=== PATIENT | female | born 1960 | race Caucasian/White ===

== ENCOUNTER → 2022-02-22 | Outpatient (CLI) | payer OTHER, SELFPAY ==
[2022-02-22 07:51] VITALS: BP 104/77; PULSE 68; RESP 18; TEMP 36.9; O2SAT 97; BMI 20.8
--- NOTE | 2022-02-22 13:02 | CT_ITS ---
INDICATION: ELEVATED LIPOPROTEIN Limited Chest OVER READ ONLY EXAMINATION: CT CHEST WITHOUT CONTRAST - CT Chest W/O Contrast Injection TECHNIQUE: Helically acquired images were obtained of the chest. A radiation dose optimization technique was used for this scan. IV Contrast dosage and agent: None. COMPARISON: None. FINDINGS: LUNGS, PLEURA AND LARGE AIRWAYS: No masses, consolidation, or edema. No pleural effusion or thickening. No pneumothorax. Hyperinflation. HEART AND PERICARDIUM: Heart size is normal. No pericardial effusion. CORONARY ARTERIES: Coronary artery calcification is seen. Minimal anterior pericardial thickening. VESSELS: Thoracic aorta is not dilated. MEDIASTINUM AND KAITLIN: No mediastinal or hilar adenopathy. Esophagus is unremarkable. No hiatal hernia. UPPER ABDOMEN: No acute pathology. BONES: No suspicious lytic or blastic abnormality. CT/Limited Chest CT Cardiac Only IMPRESSION: Coronary artery calcification. Electronically Signed: Milton Spence MD at 14:04 EDT ,
--- NOTE | 2022-02-24 09:11 | CA.SCORE ---
Calcium Scoring Date of Study:: 02/22/22 Indications Indications: Cardiac risk factors Coronary Calcium Scoring: High-resolution Computed Tomographic imaging of the chest was performed on [02/22/2022], with particular attention paid to the coronary arteries. Images from the examination were analyzed for the presence and extent of coronary artery calcification , using coronary calcium quantification software. The patient tolerated the procedure well and there were no complications. The results of the coronary calcification analysis are provided below. Findings Coronary Artery Left Main (LM): 36 Left Anterior Descending (LAD): 592 Left Circumflex (LCX): 232 Right Coronary Artery (RCA): 14.7 Total Agatston Score: 874.7 Percentile Ranking: The above places the patient at greater than 90 percentile ranking with a gender and age comparison. Calcium Scoring Interpretation: 0 No identifiable atherosclerotic plaque. Very low cardiovascular disease risk. <5% chance of presence coronary artery disease A Negative Examination 1-10 Minimal Plaque burden. Significant coronary artery disease very unlikely. 11-100 Mild plaque burden. Likely mild or minimal coronary atherosclerosis. 101-400 Moderate plaque burden Moderate non-obstructive coronary artery disease highly likely. Over 400 Extensive plaque burden. High likelihood of at least one significant coronary stenosis (>50% diameter) Calcium Score: >400 High likelihood of at least one significant coronary stenosis Conclusion: The above is suggestive of the presence of significant coronary artery disease.
== END | disposition home or self-care (01) ==
PROVIDERS: PCP Internal Medicine; Referring Provider Internal Medicine; Visit Provider Internal Medicine
DX: E78.41 Elevated Lipoprotein(a) (principal)
CPT/HCPCS: 75571; 76380

== ENCOUNTER 2023-08-01 12:52 | Outpatient (RCR) | payer OTHER, SELFPAY ==
--- NOTE | 2023-08-01 14:26 | HP.PTEVAL_ITS ---
Patient's Visit Information Visit Information Visit Information: KORIN TURNER is a 62 year old F referred to Physical Therapy by Dr. Hayley Huggins MD with a diagnosis of HIP BURSITIS ,LBP. Date of Evaluation: 08/01/23 Physical Therapist: Ry Segovia, PT, Cert MDT, OCS Visit Plan Frequency: 2x /Week Duration: 4 Weeks Plan: PT INTERVETIONS HIP STRENGTHNEING ,DLS ,POSTURAL EX'S , MANUAL THERAPT STM /HIP/ITBAND ,MODALTIES US/ESTIM HIPS AND FLEXABILITY HIPS Subjective Subjective: This female presents to physical therapy with hip bursitis hip and LBP. Patient has lumbar pain for many years since 19. 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 Patient has had imaging has shown protruding disc and DDD seeing surgeon. Patient has had fall 2017 left femur surgery. Patient has been walking 4 miles day helps back .Mostly ,recently fell in May landing on arms injury to right knee and twisted ankle. Patient pain lumbar and hips lateral . Patient describes pain as stiffness and tightness. Patient also see massage therapist. No recent imaging or no medication. Aggravating bending ,lifting and standing . Alleviating factors waling. Pain described as ache. Bowel/bladder-. Coughing/sneezing+. Patient has difficulty sleeping. Patient condition affects QOL and function. Patient goals to decrease pain. Patient precautions osteoporosis. SOCIAL: VOCATION: retired Pain Bilateral Back: Pain Intensity (Out of 10): 7 Pain Intensity Range: 10 Bilateral Hip: Pain Intensity (Out of 10): 8 Pain Intensity Range: 10 Comment: lateral Objective Objective: POSTURE: mild forward posture, knee valgus ,calcaneal valgus NEURO: denies paresthesia/tingling reflexes L3-4,L4-L5 ,L5-S1 2/3 SYMMTRIES: align PALPATION: TTP greater trochanter , IT band FLEXABILITY: hamstrings min tight, piriformis mod tight , IT BAND MOD TIGHT GAIT: reciprocal pattern knee valgus LUMBAR ROM: FLEXION MOD LOSS ,EXTESNION MOD LOSS ,SIDE GLIDES MOD LOSS MMT: quads/hams 4/5 ,( peak force) hip flexion 23.8 right ,left 21.8 ,hip abduction right 12.3 ,left 11.8 Special Tests L/S Slump test left side: Negative L/S Slump test right side: Negative L/S Left Straight Leg Raise: Negative L/S Right Straight Leg Raise: Negative R Hip Scour: Negative R Hip RENE - Intraarticular Pathology: Negative R Hip FADDIR - Labrum: Negative R Hip Trendelenberg - Glut Medius: Negative R Hip James - IT Band: Positive L Hip Scour: Positive L Hip RENE - Intraarticular Pathology: Negative L Hip Impingement Provocation - Labrum: Negative L Hip Trendelenberg - Glut Medius: Negative L Hip James - IT Band: Positive Balance/Special Test Scores Oswestry Low Back Score: 28 Goals Goal 1:: Patient to be I with HEP back and hips Goal Time Frame: 4-6 Weeks Goal 2:: Patient demonstrate 50% improvement with less pain and improved function Goal Time Frame: 4-6 Weeks Goal 3:: Patient to improve lumbar ROM for function to put on shoes Goal Time Frame: 4-6 Weeks Goal 4:: Patient to improve peak force of hips by 5-10# to improve function and gait Goal Time Frame: 4-6 Weeks Goal 5:: Patient to improve back oswestry score by 5 points to improve function Goal Time Frame: 4-6 Weeks Rehabilitation Potential Physical Therapy Diagnosis: Patient has h/o lumbar fusion and osteoporosis precaution with pain lateral hips bursitis ,weakness hips ,decrease ROM lumbar spine impairs walking and standing affects function thus benefit from skilled PT Rehabilitation Potential: Good Anticipated Interventions Patient/Client Instruction: Educate patient on: Condition and Plan of Care For the Purpose of:: To decrease pain, To increase ROM, To improve muscle performance and motor function, To improve ability to perform ADL's, To increase tolerance to activity/condition/position, To improve performance and independence with ADL's, To improve ability of physical actions for home/community/work/leisure, To improve gait and locomotor functions and To increase flexibility/ROM Therapeutic Exercise to Include: Strength training, Endurance training, Balance training, Postural training, Flexibilty training and Dynamic Lumbar Stabilization Comment: HIP STRENGTHENING For the Purpose of:: To decrease pain, To improve muscle performance and motor function, To improve ability to perform ADL's, To increase tolerance to activity/condition/position, To improve ability of physical actions for home/community/work/leisure, To improve health of tissue, To decrease soft tissue restriction, To increase flexibility/ROM, To improve endurance and To improve tolerance to ADL's Manual Therapy Techniques to Include: Mobilization and Soft tissue mobilization Comment: STICK IT BAND For the Purpose of:: To decrease pain, To increase ROM, To improve nutrient delivery to tissue, To increase oxygenation perfusion, To improve health of tissue, To decrease soft tissue restriction and To increase flexibility/ROM TENS: Yes IF ES: Yes Cryotherapy (ice pack, ice massage): Yes Thermo therapy (hot pack): Yes Ultrasound (thermal/non thermal): Yes For the Purpose of:: To decrease pain, To increase ROM, To improve nutrient delivery to tissue, To increase oxygenation perfusion, To improve health of tissue and To decrease soft tissue restriction Text: Thank you for the opportunity to evaluate your patient. For Medicare and Medicare HMO plans, please review the plan of care and approve it. It will need to be FAXED BACK to us at [phone] for Medicare purposes. For Medicare only, by signing this I certify the plan of care. Please let me know if there are questions or concerns regarding this plan of care. Physician Signature: D ate:
--- NOTE | 2023-12-10 16:18 | HP.PTDCNRP_ITS ---
Patient Information Patient Information: KORIN TURNER was seen in my office for initial evaluation on 08/01/23. The following Plan of Care was established for this patient: POC Established Initial Frequency: 2x /Week Initial Duration: 4 Weeks Anticipated Interventions Patient/Client Instruction: Educate patient on: Condition and Plan of Care For the Purpose of:: To decrease pain, To increase ROM, To improve muscle performance and motor function, To improve ability to perform ADL's, To increase tolerance to activity/condition/position, To improve performance and ind ependence with ADL's, To improve ability of physical actions for home/community/work/leisure, To improve gait and locomotor functions and To increase flexibility/ROM Therapeutic Exercise to Include: Strength training, Endurance training, Balance training, Postural training, Flexibilty training and Dynamic Lumbar Stabilization For the Purpose of:: To decrease pain, To improve muscle performance and motor function, To improve ability to perform ADL's, To increase tolerance to activity/condition/position, To improve ability of physical actions for h ome/community/work/leisure, To improve health of tissue, To decrease soft tissue restriction, To increase flexibility/ROM, To improve endurance and To improve tolerance to ADL's Manual Therapy Techniques to Include: Mobilization and Soft tissue mobilization Comment: STICK IT BAND For the Purpose of:: To decrease pain, To increase ROM, To improve nutrient delivery to tissue, To increase oxygenation perfusion, To improve health of tissue, To decrease soft tissue restriction and To increase flexibility/ROM TENS: Yes IF ES: Yes Cryotherapy (ice pack, ice massage): Yes Thermo therapy (hot pack): Yes Ultrasound (thermal/non thermal): Yes For the Purpose of:: To decrease pain, To increase ROM, To improve nutrient delivery to tissue, To increase oxygenation perfusion, To improve health of tissue and To decrease soft tissue restriction Last Seen Last Seen: This patient was last seen in our office . Pertinent comments regarding their Physical therapy will appear below: Patient was seen for PT for back pain and bursitis hip for HEP At this point I will be discontinuing this patient from physical therapy. I would be happy to see this patient again in the future if found appropriate by the physician. Thank you! Ry Segovia, PT, Cert MDT, OCS Balance/Gait/Functional tests Balance/Special Test Scores Oswestry Low Back Score: 28
== END 2023-08-01 19:00 | disposition home or self-care (01) ==
LOC: PT 12:52
PROVIDERS: PCP Internal Medicine; Referring Provider Internal Medicine; Visit Provider Internal Medicine
DX: M54.50 Low back pain, unspecified (principal); M70.70 Other bursitis of hip, unspecified hip
CPT/HCPCS: 97110; 97162

== ENCOUNTER → 2025-06-12 | Outpatient (CLI) | payer MEDICARE, SELFPAY | END | disposition home or self-care (01) | LOC: LABSPEC 15:04 | PROVIDERS: PCP Internal Medicine; Referring Provider Internal Medicine; Visit Provider Internal Medicine | DX: J02.9 Acute pharyngitis, unspecified (principal) | CPT/HCPCS: 87070 ==